=== PATIENT | female | born 1970 | race Hispanic/Latino ===

== ENCOUNTER 2016-12-29 11:21 | Emergency (ER) | payer MEDICARE, MEDICAID ==
[2016-12-29 11:22] VITALS: BMI 26.6
[2016-12-29 11:51] VITALS: TEMP 98.6; O2SAT 98
--- NOTE | 2016-12-29 12:09 | ED PDOC ---
Arrival/HPI - General Chief Complaint: Trauma Time Seen by Provider: 12/29/16 11:55 Historian: Patient - History of Present Illness Narrative History of Present Illness (Text): 12/29/16 12:06 46 year old female with a past medical history that includes hypertension presents to the emergency department after mechanical fall prior to arrival. Patient reports she slipped on ice and hit her head. Currently patient reports mild headache. No loss of consciousness. Denies abdominal pain, dizziness, nausea, vomiting, or other symptoms. Time/Duration: Prior to Arrival Symptom Onset: Sudden Symptom Course: Unchanged Modifying Factors (Text): None Associated Symptoms (Text): None Past Medical History - Provider Review Nursing Documentation Reviewed: Yes - Past History Past History: Non-Contributing - Infectious Disease Hx of Infectious Diseases: None - Tetanus Immunization Tetanus Immunization: Unknown - Cardiac Hx Hypertension: Yes - Pulmonary Hx Respiratory Disorders: No - Neurological Hx Neurological Disorder: No - HEENT Hx HEENT Disorder: No - Endocrine/Metabolic Hx Hypothyroidism: Yes - Hematological/Oncological Hx Blood Disorders: No - Integumentary Hx Dermatological Disorder: No - Musculoskeletal/Rheumatological Hx Musculoskeletal Disorders: No - Gastrointestinal Hx Gastrointestinal Disorders: No - Genitourinary/Gynecological Hx Genitourinary Disorders: No - Psychiatric Hx Bipolar Disorder: Yes Hx Depression: Yes Hx Schizophrenia: Yes Hx Substance Use: No - Past Surgical History Past Surgical History: Non-Contributing - Surgical History Hx Cholecystectomy: Yes - Anesthesia Hx Anesthesia: Yes Hx Anesthesia Reactions: No Hx Malignant Hyperthermia: No - Suicidal Assessment Feels Threatened In Home Enviroment: No Family/Social History - Physician Review Nursing Documentation Reviewed: Yes Family/Social History: Unknown Family HX Smoking Status: Never Smoked Hx Alcohol Use: No Hx Substance Use: No Hx Substance Use Treatment: No Allergies/Home Meds Allergies/Adverse Reactions: Allergies divalproex sodium [From Depakote] Allergy (Verified 11/02/16 11:39) RASH haloperidol [From Haldol] Allergy (Verified 11/02/16 11:39) RASH haloperidol lactate [From Haldol] Allergy (Verified 11/02/16 11:39) RASH olanzapine [From Zyprexa] Allergy (Verified 11/02/16 11:39) RASH risperidone [From Risperdal] Allergy (Verified 11/02/16 11:39) RASH Review of Systems - Physician Review All systems were reviewed & negative as marked: Yes - Review of Systems Cardiovascular: absent: Chest Pain Gastrointestinal: absent: Abdominal Pain, Nausea, Vomiting Neurological: Headache (mild). absent: Dizziness Physical Exam Vital Signs Reviewed: Yes Vital Signs Temp Pulse Resp BP Pulse Ox 12/29/16 12:34 72 18 168/102 H 98 12/29/16 11:48 98.6 F 76 16 181/132 H 98 Temperature: Afebrile Blood Pressure: Hypertensive Pulse: Regular Respiratory Rate: Normal Appearance: Positive for: Well-Appearing, Non-Toxic, Comfortable Pain Distress: None Mental Status: Positive for: Alert and Oriented X 3 - Systems Exam Head: Present: Atraumatic, Normocephalic Pupils: Present: PERRL Extroacular Muscles: Present: EOMI Conjunctiva: Present: Normal Mouth: Present: Moist Mucous Membranes Neck: Present: Normal Range of Motion Respiratory/Chest: Present: Clear to Auscultation, Good Air Exchange. No: Respiratory Distress, Accessory Muscle Use Cardiovascular: Present: Regular Rate and Rhythm, Normal S1, S2. No: Murmurs Abdomen: Present: Normal Bowel Sounds. No: Tenderness, Distention, Peritoneal Signs Upper Extremity: Present: Normal Inspection, Normal ROM. No: Cyanosis, Edema, Swelling Lower Extremity: Present: Normal Inspection, Normal ROM. No: Edema Neurological: Present: GCS=15, CN II-XII Intact, Speech Normal Skin: Present: Warm, Dry, Normal Color. No: Rashes Psychiatric: Present: Alert, Oriented x 3, Normal Insight, Normal Concentration Medical Decision Making ED Course and Treatment: Impression: 46 year old female with a past medical history that includes hypertension presents s/p mechanical fall prior to arrival. No LOC. Differential Diagnosis include but are not limited to: Plan: -- CT Head w/o contrast -- Tylenol -- Reassess and disposition Prior Visits: Notes and results from previous visits were reviewed. Patient last seen in ED on 11/22/16 for left toe bleeding and discharged home. Progress Notes: - RAD Interpretation Radiology Orders: 12/29/16 12:04 HEAD W/O CONTRAST [CT] Stat - Medication Orders Current Medication Orders: Discontinued Medications Acetaminophen (Tylenol 325mg Tab) 650 mg PO STAT STA Stop: 12/29/16 12:05 Last Admin: 12/29/16 12:44 Dose: 650 MG MAR Pain/Vitals Document 12/29/16 12:44 AMANDA (Rec: 12/29/16 12:44 AMANDA [id number]) Pain Reassessment Is This A Pain ReAssessment? Yes Presence of Pain Presence of Pain Yes Pain Scale Used Pain Scale Used Numeric Location Intensity 4 Scale Used Numeric - Scribe Statement The provider has reviewed the documentation as recorded by the Jaylyn Mathews Provider Scribe Attestation: All medical record entries made by the Jaylyn were at my direction and personally dictated by me. I have reviewed the chart and agree that the record accurately reflects my personal performance of the history, physical exam, medical decision making, and the department course for this patient. I have also personally directed, reviewed, and agree with the discharge instructions and disposition. Disposition/Present on Arrival - Present on Arrival Any Indicators Present on Arrival: No History of DVT/PE: No History of Uncontrolled Diabetes: No Urinary Catheter: No History of Decub. Ulcer: No History Surgical Site Infection Following: None - Disposition Have Diagnosis and Disposition been Completed?: Yes Diagnosis: Head injury Disposition: HOME/ ROUTINE Disposition Time: 15:39 Condition: STABLE Discharge Instructions (ExitCare): Head Injury (ED) Additional Instructions: return to er with worsening symptoms or concerns. Referrals: Teddy Solomon [Primary Care Provider] - Follow up with primary
[2016-12-29 12:34] VITALS: BP 168/102; PULSE 72; RESP 18
--- NOTE | 2016-12-29 13:21 | CT ---
PROCEDURE: CT HEAD WITHOUT CONTRAST. HISTORY: trauma COMPARISON: Comparison is made to the previous study dated 09/23/2016 TECHNIQUE: Axial computed tomography images were obtained through the head/brain without intravenous contrast. Radiation dose: Total exam DLP = 789.08 mGy-cm. FINDINGS: HEMORRHAGE: No intracranial hemorrhage. BRAIN: No mass effect or edema. No atrophy or chronic microvascular ischemic changes. VENTRICLES: Unremarkable. No hydrocephalus. CALVARIUM: Unremarkable. PARANASAL SINUSES: Unremarkable as visualized. No significant inflammatory changes. MASTOID AIR CELLS: Unremarkable as visualized. No inflammatory changes. OTHER FINDINGS: None. IMPRESSION: No evidence of acute intracranial hemorrhage intracranial collection mass effect or midline shift.
== END 2016-12-29 13:32 | disposition home or self-care (01) ==
LOC: ED 11:21
DX: S09.90XA Unspecified injury of head, initial encounter (principal); W00.0XXA Fall on same level due to ice and snow, initial encounter; I10 Essential (primary) hypertension

== ENCOUNTER 2017-02-13 22:04 | Emergency (ER) | payer MEDICARE, MEDICAID ==
[2017-02-13 22:04] VITALS: BMI 26.6
[2017-02-14 00:12] VITALS: BP 148/88; PULSE 84; RESP 18; TEMP 98.1; O2SAT 99
== END 2017-02-14 00:15 | disposition left against medical advice (07) ==
LOC: ED 22:04
DX: Z02.89 Encounter for other administrative examinations (principal); Z00.00 Encounter for general adult medical examination without abnormal findings

== ENCOUNTER 2017-05-19 21:24 | Emergency (ER) | payer MEDICARE, MEDICAID ==
[2017-05-19 21:24] VITALS: BMI 26.6
[2017-05-19] MEDS ORDERED: Sodium Chloride 0.9% 1,000 ML IV STA (22:58)
--- NOTE | 2017-05-19 23:01 | ED PDOC ---
Arrival/HPI <Chris Hunt - Last Filed: 05/19/17 23:50> - History of Present Illness Time/Duration: < week Symptom Onset: Gradual Symptom Course: Unchanged Activities at Onset: Other <Humaira Guevara - Last Filed: 05/20/17 01:16> - General Chief Complaint: GI Problem Time Seen by Provider: 05/19/17 21:42 - History of Present Illness Narrative History of Present Illness (Text): 05/19/17 22:58 46 year old female with past medical history of HTN and depression presents for diarrhea ongoing for a few days. Patient states that she had about 4 BMs today watery in nature. Patient denies having any abd pain, N/V, CP, SOB. Patient is tolerating diet. (Humaira Guevara) Past Medical History - Provider Review Nursing Documentation Reviewed: Yes - Past History Past History: Non-Contributing - Infectious Disease Hx of Infectious Diseases: None - Tetanus Immunization Tetanus Immunization: Unknown - Cardiac Hx Hypertension: Yes - Pulmonary Hx Respiratory Disorders: No - Neurological Hx Neurological Disorder: No - HEENT Hx HEENT Disorder: No - Renal Hx Renal Disorder: No - Endocrine/Metabolic Hx Hypothyroidism: Yes - Hematological/Oncological Hx Blood Disorders: No - Integumentary Hx Dermatological Disorder: No - Musculoskeletal/Rheumatological Hx Musculoskeletal Disorders: No - Gastrointestinal Hx Gastrointestinal Disorders: No - Genitourinary/Gynecological Hx Genitourinary Disorders: No - Psychiatric Hx Bipolar Disorder: Yes Hx Depression: Yes Hx Schizophrenia: Yes Hx Substance Use: No - Past Surgical History Past Surgical History: Non-Contributing - Surgical History Hx Cholecystectomy: Yes - Anesthesia Hx Anesthesia: Yes Hx Anesthesia Reactions: No Hx Malignant Hyperthermia: No - Suicidal Assessment Feels Threatened In Home Enviroment: No <Humaira Guevara - Last Filed: 05/20/17 01:16> Family/Social History - Physician Review Nursing Documentation Reviewed: Yes Family/Social History: Unknown Family HX Smoking Status: Never Smoked Hx Alcohol Use: No Hx Substance Use: No Hx Substance Use Treatment: No <Humaira Guevara - Last Filed: 05/20/17 01:16> Allergies/Home Meds <Chris Hunt - Last Filed: 05/19/17 23:50> <Humaira Guevara - Last Filed: 05/20/17 01:16> Allergies/Adverse Reactions: Allergies divalproex sodium [From Depakote] Allergy (Verified 05/19/17 22:49) RASH haloperidol [From Haldol] Allergy (Verified 05/19/17 22:49) RASH haloperidol lactate [From Haldol] Allergy (Verified 05/19/17 22:49) RASH olanzapine [From Zyprexa] Allergy (Verified 05/19/17 22:49) RASH risperidone [From Risperdal] Allergy (Verified 05/19/17 22:49) RASH Review of Systems - Review of Systems Constitutional: Normal ENT: absent: Voice Changes, Sore Throat, Rhinorrhea Respiratory: Normal. absent: SOB, Cough, Wheezing Cardiovascular: Normal. absent: Chest Pain, Edema, Calf Pain Gastrointestinal: Diarrhea. absent: Normal, Abdominal Pain, Nausea, Vomiting Genitourinary Female: Normal. absent: Dysuria, Frequency Skin: Normal. absent: Rash, Pruritis, Laceration Neurological: Normal. absent: Headache, Dizziness Endocrine: Normal. absent: Diaphoresis Psychiatric: Normal. absent: Anxiety, Depression <Humaira Guevara - Last Filed: 05/20/17 01:16> Physical Exam Temperature: Afebrile Blood Pressure: Normal Pulse: Regular Respiratory Rate: Normal Appearance: Positive for: Well-Appearing, Non-Toxic Pain Distress: None Mental Status: Positive for: Alert and Oriented X 3 - Systems Exam Head: Present: Atraumatic, Normocephalic Mouth: Present: Moist Mucous Membranes Respiratory/Chest: Present: Clear to Auscultation. No: Good Air Exchange, Respiratory Distress, Accessory Muscle Use, Wheezes, Rales, Rhonchi Cardiovascular: Present: Regular Rate and Rhythm, Normal S1, S2. No: Murmurs Abdomen: Present: Normal Bowel Sounds. No: Tenderness, Distention, Peritoneal Signs, Guarding Lower Extremity: Present: Normal Inspection. No: Edema, CALF TENDERNESS Neurological: Present: GCS=15 Skin: Present: Warm, Dry, Normal Color. No: Rashes Psychiatric: Present: Alert, Oriented x 3, Normal Insight, Normal Concentration <Humaira Guevara - Last Filed: 05/20/17 01:16> Medical Decision Making <Chris Hunt - Last Filed: 05/19/17 23:50> Re-evaluation Time: 23:03 <Humaira Guevara - Last Filed: 05/20/17 01:16> ED Course and Treatment: Impression: Pt seen and evaluated with medical numerical control operator. Pt, whose past medical history includes hypertension and depression, presented for watery diarrhea for past few days, with 4 episodes today. Aware and agree with HPI, clinical findings, plan, and management. Plan: -- Labs -- IV fluids -- Reassess and disposition (Chris Hunt) 05/19/17 23:03 46 year old female with diarrhea Will check CBC, CMP Patient will receive NS 1L bolus and be reevaluated 05/20/17 01:11 Patient's diarrhea has improved. (Humaira Guevara) - Lab Interpretations Lab Results: 05/19/17 23:15 05/19/17 23:15 Lab Results 05/19/17 23:15: Sodium 138, Potassium 3.4 L, Chloride 102, Carbon Dioxide 28, Anion Gap 11, BUN 17, Creatinine 0.8, Est GFR ( Amer) > 60, Est GFR (Non- Af Amer) > 60, Random Glucose 76, Calcium 8.8, Total Bilirubin 0.3, AST 20, ALT 24, Alkaline Phosphatase 76, Total Protein 6.8, Albumin 3.8, Globulin 3.1, Albumin/Globulin Ratio 1.2 05/19/17 23:15: WBC 6.5 D, RBC 4.11, Hgb 12.0, Hct 35.8 L, MCV 87.1, MCH 29.2, MCHC 33.5, RDW 15.0 H, Plt Count 216, MPV 10.6 - Medication Orders Current Medication Orders: Discontinued Medications Sodium Chloride (Sodium Chloride 0.9%) 1,000 mls @ 999 mls/hr IV .Q1H1M STA Stop: 05/19/17 23:58 Last Admin: 05/19/17 23:26 Dose: 999 mls/hr Potassium Chloride (K-Dur 20 Meq Er Tab) 40 meq PO STAT STA Stop: 05/20/17 00:56 - PA / SKEIN [employer] HELPER / Resident Statement JOHNY has reviewed & agrees with the documentation as recorded. JOHNY has examined the patient and agrees with the treatment plan. <Chris Hunt - Last Filed: 05/19/17 23:50> Disposition/Present on Arrival <Chris Hunt - Last Filed: 05/19/17 23:50> - Present on Arrival Any Indicators Present on Arrival: No History of DVT/PE: No History of Uncontrolled Diabetes: No Urinary Catheter: No History Surgical Site Infection Following: None - Disposition Have Diagnosis and Disposition been Completed?: Yes Disposition Time: 01:11 Patient Plan: Discharge <Humaira Guevara - Last Filed: 05/20/17 01:16> - Disposition Diagnosis: Diarrhea Disposition: HOME/ ROUTINE Patient Problems: Current Active Problems Problem Status Onset Diarrhea Acute Condition: GOOD Additional Instructions: Miroslava Hernandez, thank you for letting us take care of you today. Your provider was Dr. Humaira Guevara. You were treated for diarrhea. The emergency medical care you received today was directed at your acute symptoms. If you were prescribed any medication, please fill it and take as directed. It may take several days for your symptoms to resolve. Return to the Emergency Department if your symptoms worsen, do not improve, or if you have any other problems. Please contact your doctor or call one of the physicians/clinics you have been referred to that are listed on the Patient Visit Information form that is included in your discharge packet. Bring any paperwork you were given at discharge with you along with any medications you are taking to your follow up visit. Our treatment cannot replace ongoing medical care by a primary care provider (PCP) outside of the emergency department. Thank you for allowing the [facility] team to be part of your care today. If you had an X-Ray or CT scan: A Radiologist will review the ED reading if any change in treatment is needed we will contact you. If you had a blood, urine, or wound culture: It will take several days for the results, if any change in treatment is needed we will contact you. If you had an STI test: It will take 48 hours for the results. Please call after 1 week if you have not heard back.
[2017-05-19 23:55] LABS: ALB/GLOB RATIO 1.2 (1.1-1.8); ALBUMIN 3.8 g/dL (3.0-4.8); ALT/SGPT 24 U/L (7-56); AST/SGOT 20 U/L (15-39); BLOOD UREA NITROGEN 17 mg/dL (7-21); CALCIUM 8.8 mg/dL (8.4-10.5); GFR AFRICAN-AMERICAN > 60; GFR NON-AFRICAN AMERICAN > 60
[2017-05-20 00:17] LABS: MEAN CELL VOLUME 87.1 fL (80.0-105.0); MEAN CORPUSCULAR HEMOGLOBIN 29.2 pg (25.0-35.0); MEAN CORPUSCULAR HGB CONC 33.5 g/dl (31.0-37.0); RBC 4.11 10^6/uL (3.5-6.1); WHITE BLOOD COUNT 6.5 10^3/ul (4.5-11.0)
[2017-05-20 00:18] LABS: MEAN PLATELET VOLUME 10.6 fl (7.0-11.0)
[2017-05-20] MEDS ORDERED: Potassium Chloride 20 mEq ER Tab PO STA ×2 (00:55→01:02)
[2017-05-20 01:26] VITALS: TEMP 98.7; O2SAT 98
[2017-05-20 01:27] VITALS: BP 142/78; PULSE 85; RESP 14
== END 2017-05-20 01:36 | disposition home or self-care (01) ==
LOC: ED 21:24
DX: R19.7 Diarrhea, unspecified (principal); I10 Essential (primary) hypertension
CPT/HCPCS: 80053; 85027; 96360; 99284; J7040

== ENCOUNTER 2017-06-02 21:09 | Emergency (ER) | payer MEDICARE, MEDICAID ==
[2017-06-02 21:10] VITALS: BMI 26.6
== END 2017-06-02 21:34 | disposition left against medical advice (07) ==
LOC: ED 21:09
DX: Z02.89 Encounter for other administrative examinations (principal); R51 Headache

== ENCOUNTER 2017-06-05 22:47 | Emergency (ER) | payer MEDICARE, MEDICAID ==
[2017-06-05 23:10] VITALS: BP 140/91; PULSE 73; RESP 18; O2SAT 99
[2017-06-05 23:11] VITALS: TEMP 98
[2017-06-05 23:13] VITALS: BMI 29.3
[2017-06-05] MEDS ORDERED: Sodium Chloride 0.9% 1,000 ML IV STA (23:33)
--- NOTE | 2017-06-05 23:40 | ED PDOC ---
Arrival/HPI - General Historian: Patient - History of Present Illness Time/Duration: < week (2 days) Symptom Onset: Gradual Symptom Course: Unchanged Activities at Onset: Rest, Light <Nicole Espinoza - Last Filed: 06/06/17 01:34> <Yamil Arteaga - Last Filed: 06/06/17 02:20> - General Chief Complaint: Abdominal Pain Time Seen by Provider: 06/05/17 23:09 - History of Present Illness Narrative History of Present Illness (Text): 06/05/17 23:38 46 year old female who presents to the Emergency department complaining of abdominal pain for the past 2 days. Patient states pain is sharp, non-radiating , and locates around her belly-button. Patient denies any fever, chills, chest pain, shortness of breath, diarrhea, urinary symptoms, back pain, neck pain, headache, dizziness, or any other complaints. Patient reports associated nausea with multiple episodes of vomiting. Patient states she took [place] without improvement. Patient states she came to the ER a few days prior, but left without being seen. (Nicole Espinoza) Past Medical History - Provider Review Nursing Documentation Reviewed: Yes - Past History Past History: Non-Contributing - Infectious Disease Hx of Infectious Diseases: None - Tetanus Immunization Tetanus Immunization: Unknown - Cardiac Hx Hypertension: Yes - Pulmonary Hx Respiratory Disorders: No - Neurological Hx Neurological Disorder: No - HEENT Hx HEENT Disorder: No - Renal Hx Renal Disorder: No - Endocrine/Metabolic Hx Hypothyroidism: Yes - Hematological/Oncological Hx Blood Disorders: No - Integumentary Hx Dermatological Disorder: No - Musculoskeletal/Rheumatological Hx Musculoskeletal Disorders: No - Gastrointestinal Hx Gastrointestinal Disorders: No - Genitourinary/Gynecological Hx Genitourinary Disorders: No - Psychiatric Hx Bipolar Disorder: Yes Hx Depression: Yes Hx Schizophrenia: Yes Hx Substance Use: No - Past Surgical History Past Surgical History: Non-Contributing - Surgical History Hx Cholecystectomy: Yes - Anesthesia Hx Anesthesia: Yes Hx Anesthesia Reactions: No Hx Malignant Hyperthermia: No - Suicidal Assessment Feels Threatened In Home Enviroment: No <Nicole Espinoza - Last Filed: 06/06/17 01:34> Family/Social History - Physician Review Nursing Documentation Reviewed: Yes Family/Social History: Unknown Family HX Smoking Status: Never Smoked Hx Alcohol Use: No Hx Substance Use: No Hx Substance Use Treatment: No <Nicole Espinoza Roz - Last Filed: 06/06/17 01:34> Allergies/Home Meds <Nicole Esipnoza Roz - Last Filed: 06/06/17 01:34> <AftabYamil - Last Filed: 06/06/17 02:20> Allergies/Adverse Reactions: Allergies divalproex sodium [From Depakote] Allergy (Verified 06/05/17 23:14) RASH haloperidol [From Haldol] Allergy (Verified 06/05/17 23:14) RASH haloperidol lactate [From Haldol] Allergy (Verified 06/05/17 23:14) RASH olanzapine [From Zyprexa] Allergy (Verified 06/05/17 23:14) RASH risperidone [From Risperdal] Allergy (Verified 06/05/17 23:14) RASH Review of Systems - Physician Review All systems were reviewed & negative as marked: Yes - Review of Systems Constitutional: Normal. absent: Fevers Eyes: Normal ENT: Normal Respiratory: Normal. absent: SOB, Cough Cardiovascular: Normal. absent: Chest Pain Gastrointestinal: Abdominal Pain, Nausea, Vomiting. absent: Diarrhea Genitourinary Female: Normal. absent: Dysuria, Frequency, Hematuria, Urine Output Changes Musculoskeletal: Normal. absent: Back Pain, Neck Pain Skin: Normal. absent: Rash Neurological: Normal. absent: Headache, Dizziness Endocrine: Normal Hemo/Lymphatic: Normal Psychiatric: Normal <Nicole Espinoza Roz - Last Filed: 06/06/17 01:34> Physical Exam Vital Signs Reviewed: Yes Temperature: Afebrile Blood Pressure: Normal Pulse: Regular Respiratory Rate: Normal Appearance: Positive for: Well-Appearing, Non-Toxic, Comfortable Pain Distress: None Mental Status: Positive for: Alert and Oriented X 3 - Systems Exam Head: Present: Atraumatic, Normocephalic Pupils: Present: PERRL Extroacular Muscles: Present: EOMI Conjunctiva: Present: Normal Mouth: Present: Moist Mucous Membranes Neck: Present: Normal Range of Motion. No: Meningeal Signs, MIDLINE TENDERNESS , Paraspinal Tenderness Respiratory/Chest: Present: Clear to Auscultation, Good Air Exchange. No: Respiratory Distress, Accessory Muscle Use Cardiovascular: Present: Regular Rate and Rhythm, Normal S1, S2. No: Murmurs Abdomen: Present: Tenderness (Periumbilical), Normal Bowel Sounds. No: Distention, Peritoneal Signs Back: Present: Normal Inspection. No: CVA Tenderness, Midline Tenderness, Paraspinal Tenderness (No flank tenderness) Upper Extremity: Present: Normal Inspection. No: Cyanosis, Edema Lower Extremity: Present: Normal Inspection. No: Edema Neurological: Present: GCS=15, Speech Normal Skin: Present: Warm, Dry, Normal Color. No: Rashes Psychiatric: Present: Alert, Oriented x 3, Normal Insight, Normal Concentration <Nicole Espinoza - Last Filed: 06/06/17 01:34> Medical Decision Making <Nicole Espinoza - Last Filed: 06/06/17 01:34> - RAD Interpretation Assistant Professor Of Criminal Justice: Radiologist <Yamil Arteaga - Last Filed: 06/06/17 02:20> ED Course and Treatment: 06/05/17 23:38 Patient is nontoxic well appearing with stable vital signs presenting with 2 day history of worsening abdominal pain with multiple episodes of vomiting. CBC: wbc; 2.4 CMP: K; 3.0 Lipase wnl Urinalysis: pending CAT scan PENDING 06/06/17 01:23 case signed out to dr. arteaga pending CT results and Disposition. (Nicole Espinoza) 06/06/17 01:25 Case endorsed to me by POLLY Espinoza, pending CT results and disposition. 06/06/17 02:09 Reviewed radiology, CT Abdomen and Pelvis shows: Lower thorax: Bibasilar atelectasis. ABDOMEN: Liver: No acute findings. Gallbladder and bile ducts: The gallbladder is surgically absent. No significant intra- or extrahepatic biliary ductal dilation. Pancreas: Enhances homogeneously. No ductal dilation. No discrete mass. Spleen: No acute findings. Adrenals: No acute findings. Kidneys and ureters: No acute findings. No hydronephrosis or renal calculi. No discrete solid mass. PELVIS: Bladder: Moderately distended, but otherwise unremarkable. Reproductive: No acute findings. Appendix: The air filled appendix is of normal caliber (series 2, image 93; series 601, image 79). ABDOMEN and PELVIS: Stomach and bowel: No obstruction. Mural thickening within multiple loops of fluid-filled proximal small bowel, without surrounding inflammation or fluid to confirm an acute enteritis. Peritoneum: As above. Lymph nodes: No pathologically enlarged lymph nodes. Vasculature: Calcified atherosclerotic disease. Bones: No acute fracture. IMPRESSION: Mural thickening within multiple loops of proximal small bowel without surrounding inflammation or fluid to confirm a focal enteritis. 06/06/17 02:[address] Carnes, who is aware and agrees with plan. Accepts pt in to his service. Pt will go to [facility] observation for abdominal pain, intractable vomiting, and leukopenia. Requests Dr. Shi on consult. ( Yamil Arteaga) - Lab Interpretations Lab Results: 06/05/17 23:33 06/05/17 23:33 Lab Results 06/05/17 23:33: WBC 2.4 L* D, RBC 4.29, Hgb 12.5, Hct 37.2, MCV 86.7, MCH 29.1, MCHC 33.6, RDW 14.6 H, Plt Count 141, MPV 9.8, Gran % 51.9, Lymph % (Auto) 35.6 H, Falls % (Auto) 11.7 H, Eos % (Auto) 0.4 L, Baso % (Auto) 0.4, Gran # 1.24 L, Lymph # 0.9 L, Falls # 0.3, Eos # 0.0, Baso # 0.01 06/05/17 23:33: Sodium 138, Potassium 3.0 L, Chloride 95, Carbon Dioxide 32, Anion Gap 14, BUN 13, Creatinine 0.8, Est GFR ( Amer) > 60, Est GFR (Non- Af Amer) > 60, Random Glucose 91, Calcium 8.6, Total Bilirubin 0.4, AST 31, ALT 39, Alkaline Phosphatase 74, Total Protein 6.7, Albumin 3.8, Globulin 2.9, Albumin/Globulin Ratio 1.3, Lipase 59 06/05/17 23:33: Urine Color Yellow, Urine Appearance Clear, Urine pH 6.0, Ur Specific [place] 1.020, Urine Protein Negative, Urine Glucose (UA) Negative, Urine Ketones Negative, Urine Blood Negative, Urine Nitrate Negative, Urine Bilirubin Negative, Urine Urobilinogen 0.2, Ur Leukocyte Esterase Negative - RAD Interpretation Radiology Orders: 06/05/17 23:33 ABD & PELVIS IV CONTRAST ONLY [CT] Stat - Medication Orders Current Medication Orders: Ceftriaxone Sodium (Rocephin 1 Gram Ivpb) 1 gm in 100 mls @ 200 mls/hr IV ONCE STA PRN Reason: Protocol Stop: 06/06/17 02:39 Metronidazole (Flagyl) 500 mg in 100 mls @ 100 mls/hr IVPB STAT STA PRN Reason: Protocol Stop: 06/06/17 03:10 Sodium Chloride (Sodium Chloride 0.9%) 1,000 mls @ 100 mls/hr IV .Q10H STA Stop: 06/06/17 12:17 Ondansetron HCl (Zofran Inj) 4 mg IVP Q6H PRN PRN Reason: Nausea/Vomiting Stop: 06/06/17 11:00 Discontinued Medications Sodium Chloride (Sodium Chloride 0.9%) 1,000 mls @ 999 mls/hr IV .Q1H1M STA Stop: 06/06/17 00:33 Last Admin: 06/05/17 23:57 Dose: 999 mls/hr Iohexol (Omnipaque 300 100 Ml) Confirm Administered Dose 100 ml IJ .STK-MED ONE Stop: 06/06/17 00:36 Ondansetron HCl (Zofran Inj) 4 mg IVP STAT STA Stop: 06/05/17 23:34 Last Admin: 06/05/17 23:57 Dose: 4 mg Potassium Chloride (K-Dur 20 Meq Er Tab) 40 meq PO STAT STA Stop: 06/06/17 01:27 Last Admin: 06/06/17 01:45 Dose: 40 meq - Scribe Statement The provider has reviewed the documentation as recorded by the Scribe <Nicole Espinoza - Last Filed: 06/06/17 01:34> - PA / NATIONAL EXPANSION RECRUITER / Resident Statement / has reviewed & agrees with the documentation as recorded. / has examined the patient and agrees with the treatment plan. <Yamil Arteaga - Last Filed: 06/06/17 02:20> - Scribe Statement Sona Sellers Provider Scribe Attestation: All medical record entries made by the Scribe were at my direction and personally dictated by me. I have reviewed the chart and agree that the record accurately reflects my personal performance of the history, physical exam, medical decision making, and the department course for this patient. I have also personally directed, reviewed, and agree with the discharge instructions and disposition. (Nicole Espinoza) Disposition/Present on Arrival - Present on Arrival Any Indicators Present on Arrival: No History of DVT/PE: No History of Uncontrolled Diabetes: No Urinary Catheter: No History of Decub. Ulcer: No History Surgical Site Infection Following: None <Nicole Espinoza - Last Filed: 06/06/17 01:34> - Present on Arrival Any Indicators Present on Arrival: No History of DVT/PE: No History of Uncontrolled Diabetes: No Urinary Catheter: No History of Decub. Ulcer: No History Surgical Site Infection Following: None - Disposition Have Diagnosis and Disposition been Completed?: Yes Disposition Time: 02:16 <Yamil Arteaga - Last Filed: 06/06/17 02:20> - Disposition Diagnosis: Abdominal pain, Intractable vomiting Disposition: HOSPITALIZED Patient Problems: Current Active Problems Problem Status Onset Abdominal pain Acute Intractable vomiting Acute Condition: STABLE Forms: [employer] (Wallisian)
[2017-06-06 00:08] LABS: BASO # 0.01 K/mm3 (0.0-2.0); BASO % 0.4 % (0.0-3.0); EOS % 0.4 % (1.5-5.0); GRAN # 1.24 (1.4-6.5); GRAN % 51.9 % (50.0-68.0); HEMATOCRIT 37.2 % (36.0-48.0); LYMPH # 0.9 (1.2-3.4); LYMPH % 35.6 % (22.0-35.0); MEAN CELL VOLUME 86.7 fl (80.0-105.0); MEAN CORPUSCULAR HEMOGLOBIN 29.1 pg (25.0-35.0); MEAN CORPUSCULAR HGB CONC 33.6 g/dl (31.0-37.0); MEAN PLATELET VOLUME 9.8 fl (7.0-11.0); MONO # 0.3 (0.1-0.6); MONO % 11.7 % (1.0-6.0); RED CELL DISTRIBUTION WIDTH 14.6 % (11.5-14.5)
[2017-06-06 00:14] LABS: ALB/GLOB RATIO 1.3 (1.1-1.8); ALKALINE PHOSPHATASE 74 U/L (38-133); ALT/SGPT 39 U/L (7-56); AST/SGOT 31 U/L (15-39); BILIRUBIN,TOTAL 0.4 mg/dL (0.2-1.3); BLOOD UREA NITROGEN 13 mg/dL (7-21); CALCIUM 8.6 mg/dL (8.4-10.5); CARBON DIOXIDE 32 mmol/L (21-33); CHLORIDE 95 mmol/L (95-110); GFR AFRICAN-AMERICAN > 60; GLUCOSE,RANDOM 91 mg/dL (70-110); LIPASE 59 U/L (23-300); SODIUM 138 mmol/L (132-148); TOTAL PROTEIN 6.7 g/dL (5.8-8.3)
[2017-06-06 00:17] LABS: WHITE BLOOD COUNT 2.4 10^3/ul (4.5-11.0)
[2017-06-06] MEDS ORDERED: Iohexol 300 100 ML IJ ONE (00:35)
[2017-06-06] MEDS ORDERED: Potassium Chloride 20 mEq ER Tab PO STA (01:26)
--- NOTE | 2017-06-06 01:34 | CT ---
EXAM: CT Abdomen and Pelvis With Intravenous Contrast CLINICAL HISTORY: 46 years old, female; Pain; Abdominal pain; Acute; Prior surgery; Surgery date: 6+ months; Surgery type: Cholycystectomy 8 years ago; Additional info: Abd pain TECHNIQUE: Axial computed tomography images of the abdomen and pelvis with intravenous contrast. All CT scans at this facility use one or more dose reduction techniques, viz.: automated exposure control; ma/kV adjustment per patient size (including targeted exams where dose is matched to indication; i.e. head); or iterative reconstruction technique. Coronal and sagittal reformatted images were created and reviewed. CONTRAST: 100 mL of OMNI 350 administered intravenously. COMPARISON: CT - ABD PELVIS IV CONTRAST ONLY 12/27/2015 12:37:32 PM FINDINGS: Lower thorax: Bibasilar atelectasis. ABDOMEN: Liver: No acute findings. Gallbladder and bile ducts: The gallbladder is surgically absent. No significant intra- or extrahepatic biliary ductal dilation. Pancreas: Enhances homogeneously. No ductal dilation. No discrete mass. Spleen: No acute findings. Adrenals: No acute findings. Kidneys and ureters: No acute findings. No hydronephrosis or renal calculi. No discrete solid mass. PELVIS: Bladder: Moderately distended, but otherwise unremarkable. Reproductive: No acute findings. Appendix: The air filled appendix is of normal caliber (series 2, image 93; series 601, image 79). ABDOMEN and PELVIS: Stomach and bowel: No obstruction. Mural thickening within multiple loops of fluid-filled proximal small bowel, without surrounding inflammation or fluid to confirm an acute enteritis. Peritoneum: As above. Lymph nodes: No pathologically enlarged lymph nodes. Vasculature: Calcified atherosclerotic disease. Bones: No acute fracture. IMPRESSION: Mural thickening within multiple loops of proximal small bowel without surrounding inflammation or fluid to confirm a focal enteritis.
[2017-06-06 01:53] LABS: URINE BILIRUBIN NEGATIVE (NEGATIVE); URINE BLOOD NEGATIVE (NEGATIVE); URINE GLUCOSE (UA) NEGATIVE (NEGATIVE); URINE KETONE NEGATIVE (NEGATIVE); URINE LEUKOCYTE ESTERASE NEGATIVE Leu/uL (NEGATIVE); URINE PROTEIN NEGATIVE mg/dL (<30 mg/dL); URINE UROBILINOGEN 0.2 E.U./dL (<1 E.U./dL)
[2017-06-06 01:57] LABS: URINE APPEARANCE CLEAR (CLEAR); URINE COLOR YELLOW (YELLOW)
[2017-06-06] MEDS ORDERED: cefTRIAXone 1 gm 1 GM/100 ML BAG IV STA (02:10)
[2017-06-06] MEDS ORDERED: metroNIDAZOLE IV 500 mg/100 ml 500 MG/100 ML BAG IVPB STA (02:11)
[2017-06-06] MEDS ORDERED: Sodium Chloride 0.9% 1,000 ML IV STA (02:18)
--- NOTE | 2017-06-06 16:57 | CP.PCM.PCO ---
Physician Communication Note - Physician Communication Note Physician Communication Note: attempted to locate patient, unable to be found by staff on 3rd floor or ER
--- NOTE | 2017-06-06 20:04 | CP.PCM.PN ---
Subjective - Date & Time of Evaluation Date of Evaluation: 06/06/17 Time of Evaluation: 03:45 - Subjective Subjective: Patient in the ER requested to leave against medical advice, was being admitted for evaluation and treatment of abdominal pain, with preliminary diagnosis of enterocolitis. Patient informed about the risk, she signed AMA sheet please see the details. Communicated with the ER staff/patient's nurse to inform PMD about pt's leaving AMA. Objective - Vital Signs/Intake and Output Vital Signs (last 24 hours): Temp Pulse Resp BP Pulse Ox 98.0 F 73 18 140/91 H 99 06/05/17 23:09 06/05/17 23:09 06/05/17 23:09 06/05/17 23:09 06/05/17 23:09
== END 2017-06-06 03:52 | disposition left against medical advice (07) ==
LOC: ED 22:47 → UNDOADMOB 06-06 02:17 → ERH 06-06 02:17
DX: R10.9 Unspecified abdominal pain (principal); R11.10 Vomiting, unspecified; I10 Essential (primary) hypertension
CPT/HCPCS: 74177; 80053; 81003; 83690; 85025; 87040; 96374; 99284; J0696; J2405; J7040; Q9967

== ENCOUNTER 2017-07-29 21:53 | Emergency (ER) | payer MEDICARE, MEDICAID ==
[2017-07-29 22:29] VITALS: BMI 29.0
== END 2017-07-29 22:35 | disposition left against medical advice (07) ==
LOC: ED 21:53
DX: Z02.89 Encounter for other administrative examinations (principal); Z00.00 Encounter for general adult medical examination without abnormal findings

== ENCOUNTER 2017-07-30 20:54 | Emergency (ER) | payer MEDICARE, MEDICAID ==
[2017-07-30 20:55] VITALS: BMI 29.0
--- NOTE | 2017-07-30 21:19 | ED PDOC ---
Arrival/HPI - General Time Seen by Provider: 07/30/17 20:55 Historian: Patient - History of Present Illness Narrative History of Present Illness (Text): 07/30/17 21:20 46yr old female presents today for medication refill. pt denies any complaints. states she ran out of her medication and doesnt like her doctor. denies cp or sob. no vomiting/diarrhea. no abdominal pain. no other complaints. Past Medical History - Provider Review Nursing Documentation Reviewed: Yes - Travel History Have you recently traveled outside [place] w/in the past 3 mons?: No - Past History Past History: Non-Contributing - Infectious Disease Hx of Infectious Diseases: None - Tetanus Immunization Tetanus Immunization: Unknown - Cardiac Hx Hypertension: Yes - Pulmonary Hx Respiratory Disorders: No - Neurological Hx Neurological Disorder: No - HEENT Hx HEENT Disorder: No - Renal Hx Renal Disorder: No - Endocrine/Metabolic Hx Hypothyroidism: Yes - Hematological/Oncological Hx Blood Disorders: No - Integumentary Hx Dermatological Disorder: No - Musculoskeletal/Rheumatological Hx Musculoskeletal Disorders: No - Gastrointestinal Hx Gastrointestinal Disorders: No - Genitourinary/Gynecological Hx Genitourinary Disorders: No - Psychiatric Hx Bipolar Disorder: Yes Hx Depression: Yes Hx Schizophrenia: Yes Hx Substance Use: No - Past Surgical History Past Surgical History: Non-Contributing - Surgical History Hx Cholecystectomy: Yes - Anesthesia Hx Anesthesia: Yes Hx Anesthesia Reactions: No Hx Malignant Hyperthermia: No - Suicidal Assessment Feels Threatened In Home Enviroment: No Family/Social History - Physician Review Nursing Documentation Reviewed: Yes Family/Social History: Unknown Family HX Smoking Status: Never Smoked Hx Alcohol Use: No Hx Substance Use: No Hx Substance Use Treatment: No Allergies/Home Meds Allergies/Adverse Reactions: Allergies divalproex sodium [From Depakote] Allergy (Verified 07/29/17 22:30) RASH haloperidol [From Haldol] Allergy (Verified 07/29/17 22:30) RASH haloperidol lactate [From Haldol] Allergy (Verified 07/29/17 22:30) RASH olanzapine [From Zyprexa] Allergy (Verified 07/29/17 22:30) RASH risperidone [From Risperdal] Allergy (Verified 07/29/17 22:30) RASH Review of Systems - Review of Systems Constitutional: absent: Fatigue, Fevers Respiratory: absent: SOB, Cough Cardiovascular: absent: Chest Pain, Palpitations Gastrointestinal: absent: Abdominal Pain, Nausea, Vomiting Musculoskeletal: absent: Arthralgias Skin: absent: Rash, Pruritis Neurological: absent: Headache, Dizziness Psychiatric: absent: Anxiety, Depression Physical Exam Vital Signs Reviewed: Yes Temperature: Afebrile Blood Pressure: Hypertensive Pulse: Regular Respiratory Rate: Normal Appearance: Positive for: Well-Appearing, Non-Toxic, Comfortable Pain Distress: None Mental Status: Positive for: Alert and Oriented X 3 - Systems Exam Head: Present: Atraumatic Mouth: Present: Moist Mucous Membranes Neck: Present: Normal Range of Motion Respiratory/Chest: Present: Clear to Auscultation, Good Air Exchange. No: Respiratory Distress, Accessory Muscle Use Cardiovascular: Present: Regular Rate and Rhythm, Normal S1, S2. No: Murmurs Abdomen: No: Tenderness Neurological: Present: GCS=15, Speech Normal Skin: Present: Warm, Dry, Normal Color. No: Rashes Psychiatric: Present: Alert, Oriented x 3 Medical Decision Making ED Course and Treatment: 07/30/17 21:31 46yr old female with hx of HTN requesting medication refill. denies any complaints. slightly Hypertensive. rx for hctz and potassium given. pt was advised to f/u with PMD [facility]. advised immediate return if symptoms worsen ,persist or if new symptoms develop. Patient verbalizes understanding of discharge instructions and need for immediate followup. all aspects of this case were discussed the attending of record. impression; medication refill Follow up with the primary care physician within the next 2 days. take medications as prescribed. Return if symptoms worsen,persist or if new symptoms develop. Disposition/Present on Arrival - Present on Arrival Any Indicators Present on Arrival: No History of DVT/PE: No History of Uncontrolled Diabetes: No Urinary Catheter: No History Surgical Site Infection Following: None - Disposition Have Diagnosis and Disposition been Completed?: Yes Diagnosis: Prescription refill Disposition: HOME/ ROUTINE Disposition Time: 21:13 Condition: GOOD Additional Instructions: Follow up with the primary care physician within the next 2 days. take medications as prescribed. Return if symptoms worsen,persist or if new symptoms develop. Prescriptions: Hydrochlorothiazide [Microzide] 25 mg PO DAILY #10 cap Potassium Chloride 10 meq PO DAILY #10 capsule.er Referrals: [facility] [Outside] - Follow up with primary Beatrice Kevin MD [Staff Provider] - Follow up with primary
[2017-07-30 21:20] VITALS: BP 167/81; PULSE 82; RESP 19; TEMP 98.3; O2SAT 98
== END 2017-07-30 21:35 | disposition home or self-care (01) ==
LOC: ED 20:54
DX: Z76.0 Encounter for issue of repeat prescription (principal)

== ENCOUNTER 2017-08-15 19:03 | Emergency (ER) | payer MEDICARE, MEDICAID ==
[2017-08-15 19:03] VITALS: BMI 29.0
--- NOTE | 2017-08-15 19:58 | ED PDOC ---
Arrival/HPI - General Chief Complaint: ENT Problem Time Seen by Provider: 08/15/17 19:21 Historian: Patient - History of Present Illness Narrative History of Present Illness (Text): 08/15/17 19:53 A 47 year old female, whose past medical history includes bipolar disorder and hypertension, presents to the emergency department complaining of a spontaneous nose bleed prior to arrival. She reports cold like symptoms for the past few days.On evaluation, no active bleeding. Patient denies any fever, chills, nausea , vomiting, abdominal pain, chest pain, shortness of breath, headache, visual changes or any other complaint Time/Duration: Prior to Arrival Symptom Course: Resolved Quality: Other Context: Home Past Medical History - Provider Review Nursing Documentation Reviewed: Yes - Past History Past History: Non-Contributing - Infectious Disease Hx of Infectious Diseases: None - Tetanus Immunization Tetanus Immunization: Unknown - Cardiac Hx Hypertension: Yes - Pulmonary Hx Respiratory Disorders: No - Neurological Hx Neurological Disorder: No - HEENT Hx HEENT Disorder: No - Renal Hx Renal Disorder: No - Endocrine/Metabolic Hx Hypothyroidism: Yes - Hematological/Oncological Hx Blood Disorders: No - Integumentary Hx Dermatological Disorder: No - Musculoskeletal/Rheumatological Hx Musculoskeletal Disorders: No - Gastrointestinal Hx Gastrointestinal Disorders: No - Genitourinary/Gynecological Hx Genitourinary Disorders: No - Psychiatric Hx Bipolar Disorder: Yes Hx Depression: Yes Hx Schizophrenia: Yes Hx Substance Use: No - Past Surgical History Past Surgical History: Non-Contributing - Surgical History Hx Cholecystectomy: Yes - Anesthesia Hx Anesthesia: Yes Hx Anesthesia Reactions: No Hx Malignant Hyperthermia: No - Suicidal Assessment Feels Threatened In Home Enviroment: No Family/Social History - Physician Review Nursing Documentation Reviewed: Yes Family/Social History: No Known Family HX Smoking Status: Never Smoked Hx Alcohol Use: No Hx Substance Use: No Hx Substance Use Treatment: No Allergies/Home Meds Allergies/Adverse Reactions: Allergies divalproex sodium [From Depakote] Allergy (Verified 08/15/17 19:14) RASH haloperidol [From Haldol] Allergy (Verified 08/15/17 19:14) RASH haloperidol lactate [From Haldol] Allergy (Verified 08/15/17 19:14) RASH olanzapine [From Zyprexa] Allergy (Verified 08/15/17 19:14) RASH risperidone [From Risperdal] Allergy (Verified 08/15/17 19:14) RASH Review of Systems - Physician Review All systems were reviewed & negative as marked: Yes - Review of Systems Constitutional: absent: Fevers, Night Sweats Eyes: absent: Vision Changes ENT: Epistaxis (resolved) Respiratory: absent: SOB Cardiovascular: absent: Chest Pain Gastrointestinal: absent: Abdominal Pain, Nausea, Vomiting Neurological: absent: Headache Physical Exam Vital Signs Pulse Resp BP Pulse Ox 08/15/17 20:28 68 18 148/87 99 Appearance: Positive for: Well-Appearing, Non-Toxic, Comfortable Pain Distress: None Mental Status: Positive for: Alert and Oriented X 3 - Systems Exam Head: Present: Atraumatic, Normocephalic Pupils: Present: PERRL Extroacular Muscles: Present: EOMI Conjunctiva: Present: Normal Mouth: Present: Moist Mucous Membranes Pharnyx: Present: Normal. No: ERYTHEMA, EXUDATE, TONSILS ENLARGED Nose (External): Present: Atraumatic Nose (Internal): Present: Normal Inspection, No Active Bleeding, Other (Dried blood in right anterior nasal, no swelling or tenderness) Neck: Present: Normal Range of Motion. No: Meningeal Signs Respiratory/Chest: Present: Clear to Auscultation, Good Air Exchange. No: Respiratory Distress, Accessory Muscle Use Cardiovascular: Present: Regular Rate and Rhythm, Normal S1, S2. No: Murmurs Abdomen: Present: Normal Bowel Sounds. No: Tenderness, Distention, Peritoneal Signs Back: Present: Normal Inspection Upper Extremity: Present: Normal Inspection, NORMAL PULSES. No: Cyanosis, Edema Lower Extremity: Present: Normal Inspection, NORMAL PULSES. No: Edema, CALF TENDERNESS Neurological: Present: GCS=15, CN II-XII Intact, Speech Normal, Motor Func Grossly Intact, Normal Sensory Function, Normal Cerebellar Funct Skin: Present: Warm, Dry, Normal Color. No: Rashes Psychiatric: Present: Alert, Oriented x 3, Normal Insight, Normal Concentration Medical Decision Making ED Course and Treatment: 08/15/17 19:53 Impression: A 47 year old female with spontaneous nose bleed, which has resolved. No active bleeding. Plan: -- Clonidine -- Reassess and disposition Progress Notes: - Medication Orders Current Medication Orders: Discontinued Medications Clonidine HCl (Catapres) 0.2 mg PO STAT STA Stop: 08/15/17 19:31 - Scribe Statement The provider has reviewed the documentation as recorded by the Scribe Magali Malone Provider Scribe Attestation: All medical record entries made by the Scribe were at my direction and personally dictated by me. I have reviewed the chart and agree that the record accurately reflects my personal performance of the history, physical exam, medical decision making, and the department course for this patient. I have also personally directed, reviewed, and agree with the discharge instructions and disposition. Disposition/Present on Arrival - Present on Arrival Any Indicators Present on Arrival: No History of DVT/PE: No History of Uncontrolled Diabetes: No Urinary Catheter: No History of Decub. Ulcer: No History Surgical Site Infection Following: None - Disposition Have Diagnosis and Disposition been Completed?: Yes Diagnosis: Epistaxis Disposition: HOME/ ROUTINE Disposition Time: 20:51 Patient Plan: Discharge Condition: STABLE Discharge Instructions (ExitCare): Nosebleed (ED) Additional Instructions: Avoid any digital manipulation of your nose/Take meds as prescribed/follow up with your doctor this week Prescriptions: Loratadine [Claritin] 10 mg PO DAILY PRN #14 tab PRN Reason: Allergy Symptoms Referrals: America Solomon MD [Primary Care Provider] - Follow up with primary Forms: [employer] (Togolese)
[2017-08-15 21:07] VITALS: BP 145/82; PULSE 70; RESP 16; O2SAT 97
== END 2017-08-15 21:07 | disposition home or self-care (01) ==
LOC: ED 19:03
DX: R04.0 Epistaxis (principal); I10 Essential (primary) hypertension

== ENCOUNTER 2017-10-03 19:43 | Emergency (ER) | payer MEDICARE, MEDICAID ==
[2017-10-03 19:43] VITALS: BMI 28.1
[2017-10-03 19:57] VITALS: TEMP 98.7
--- NOTE | 2017-10-03 20:05 | ED PDOC ---
Arrival/HPI - General Chief Complaint: Abnormal Skin Integrity Time Seen by Provider: 10/03/17 20:02 Historian: Patient - History of Present Illness Narrative History of Present Illness (Text): 10/03/17 20:04 47 y/o female, psychiatric including schizophrenia, pmh including htn, multiple drug allergy to psychiatric meds, c/o itching rash on the lt. hand and rt. shoulder region x 2 days after changing a new soap, no fever or chills, no headache or night sweat, no dizziness, no change in vision, no other medical or psychological complaints. Past Medical History - Provider Review Nursing Documentation Reviewed: Yes - Past History Past History: Non-Contributing - Infectious Disease Hx of Infectious Diseases: None - Tetanus Immunization Tetanus Immunization: Unknown - Cardiac Hx Hypertension: Yes - Pulmonary Hx Respiratory Disorders: No - Neurological Hx Neurological Disorder: No - HEENT Hx HEENT Disorder: No - Renal Hx Renal Disorder: No - Endocrine/Metabolic Hx Hypothyroidism: Yes - Hematological/Oncological Hx Blood Disorders: No - Integumentary Hx Dermatological Disorder: No - Musculoskeletal/Rheumatological Hx Musculoskeletal Disorders: No - Gastrointestinal Hx Gastrointestinal Disorders: No - Genitourinary/Gynecological Hx Genitourinary Disorders: No - Psychiatric Hx Bipolar Disorder: Yes Hx Depression: Yes Hx Schizophrenia: Yes Hx Substance Use: No - Past Surgical History Past Surgical History: Non-Contributing - Surgical History Hx Cholecystectomy: Yes - Anesthesia Hx Anesthesia: Yes - Suicidal Assessment Feels Threatened In Home Enviroment: No Family/Social History - Physician Review Nursing Documentation Reviewed: Yes Family/Social History: Unknown Family HX Smoking Status: Never Smoked Hx Alcohol Use: No Hx Substance Use: No Hx Substance Use Treatment: No Allergies/Home Meds Allergies/Adverse Reactions: Allergies divalproex sodium [From Depakote] Allergy (Verified 10/03/17 19:50) RASH haloperidol [From Haldol] Allergy (Verified 10/03/17 19:50) RASH haloperidol lactate [From Haldol] Allergy (Verified 10/03/17 19:50) RASH olanzapine [From Zyprexa] Allergy (Verified 10/03/17 19:50) RASH risperidone [From Risperdal] Allergy (Verified 10/03/17 19:50) RASH Review of Systems - Review of Systems Constitutional: absent: Fatigue, Fevers Eyes: absent: Vision Changes ENT: absent: Hearing Changes Respiratory: absent: SOB, Cough Cardiovascular: absent: Chest Pain Genitourinary Female: absent: Dysuria Skin: Rash, Pruritis Neurological: absent: Headache, Dizziness Physical Exam Vital Signs Reviewed: Yes Vital Signs Temp Pulse Resp BP Pulse Ox 10/03/17 19:51 98.7 F 83 17 150/90 97 Temperature: Afebrile Blood Pressure: Normal Pulse: Regular Respiratory Rate: Normal Appearance: Positive for: Well-Appearing, Non-Toxic, Comfortable Pain Distress: None Mental Status: Positive for: Alert and Oriented X 3 - Systems Exam Head: Present: Atraumatic, Normocephalic Pupils: Present: PERRL Extroacular Muscles: Present: EOMI Conjunctiva: Present: Normal Mouth: Present: Moist Mucous Membranes Neck: Present: Normal Range of Motion Respiratory/Chest: Present: Clear to Auscultation, Good Air Exchange. No: Respiratory Distress, Accessory Muscle Use Cardiovascular: Present: Regular Rate and Rhythm, Normal S1, S2. No: Murmurs Abdomen: Present: Normal Bowel Sounds. No: Tenderness, Distention, Peritoneal Signs Back: Present: Normal Inspection Upper Extremity: Present: Normal Inspection. No: Cyanosis, Edema Lower Extremity: Present: Normal Inspection. No: Edema Neurological: Present: GCS=15, Speech Normal, Motor Func Grossly Intact, Gait Normal, Memory Normal Skin: Present: Warm, Dry, Rashes (Lt. hand visible lichenification rash rt. shoulder no visible rash, no cellulitis or streaking, no ulcers, no bullseye or target signs. ), Normal Color Psychiatric: Present: Alert, Oriented x 3, Normal Insight, Normal Concentration Medical Decision Making ED Course and Treatment: 10/03/17 20:44 -Discharge home with benadryl, lotrisone, keep the skin cool and dry, avoid contact with possible allergen, follow up with your own pmd and plastic cutter within 2 days, return to the ER for any new or worsening signs or symptoms. - PA / LINING SETTER / Resident Statement MD/DO has reviewed & agrees with the documentation as recorded. Disposition/Present on Arrival - Present on Arrival Any Indicators Present on Arrival: No History of DVT/PE: No History of Uncontrolled Diabetes: No Urinary Catheter: No History of Decub. Ulcer: No History Surgical Site Infection Following: None - Disposition Have Diagnosis and Disposition been Completed?: Yes Diagnosis: Contact dermatitis Disposition: HOME/ ROUTINE Disposition Time: 20:45 Patient Plan: Discharge Condition: GOOD Additional Instructions: -Discharge home with benadryl, lotrisone, keep the skin cool and dry, avoid contact with possible allergen, follow up with your own pmd and plastic cutter within 2 days, return to the ER for any new or worsening signs or symptoms. Prescriptions: Clotrimazole/Betamethasone [Lotrisone] 1 appful EXT BID #30 g DiphenhydrAMINE [Benadryl] 50 mg PO QID PRN #30 cap PRN Reason: Other Referrals: Jordan Castillo MD [Staff Provider] - Follow up with primary [facility] [place] - Follow up with primary
[2017-10-03 22:39] VITALS: BP 148/73; PULSE 74; RESP 18; O2SAT 98
== END 2017-10-03 21:25 | disposition home or self-care (01) ==
LOC: ED 19:43
DX: L25.9 Unspecified contact dermatitis, unspecified cause (principal)

== ENCOUNTER 2017-10-03 23:06 | Emergency (ER) | payer MEDICARE, MEDICAID ==
[2017-10-03 23:07] VITALS: BMI 28.1
== END 2017-10-03 23:19 | disposition left against medical advice (07) ==
LOC: ED 23:06
DX: Z02.89 Encounter for other administrative examinations (principal); R51 Headache

== ENCOUNTER 2017-12-05 13:05 | Emergency (ER) | payer MEDICARE, MEDICAID ==
--- NOTE | 2017-12-05 13:14 | ED PDOC ---
Arrival/HPI - General Time Seen by Provider: 12/05/17 13:11 Historian: Patient - History of Present Illness Narrative History of Present Illness (Text): 12/05/17 13:12 47yo female bib BLS for psychiatric evaluation. Per the EMS, Social security worker, called and states patient stated "i will kill myself", while on the phone with her this morning. Patient denies talking with any social security worker or having any intention of killing her self. She denies homicidal ideation or somatic complaint. Past Medical History - Provider Review Nursing Documentation Reviewed: Yes - Past History Past History: Non-Contributing - Infectious Disease Hx of Infectious Diseases: None - Tetanus Immunization Tetanus Immunization: Unknown - Cardiac Hx Hypertension: Yes - Pulmonary Hx Respiratory Disorders: No - Neurological Hx Neurological Disorder: No - HEENT Hx HEENT Disorder: No - Renal Hx Renal Disorder: No - Endocrine/Metabolic Hx Hypothyroidism: Yes - Hematological/Oncological Hx Blood Disorders: No - Integumentary Hx Dermatological Disorder: No - Musculoskeletal/Rheumatological Hx Musculoskeletal Disorders: No - Gastrointestinal Hx Gastrointestinal Disorders: No - Genitourinary/Gynecological Hx Genitourinary Disorders: No - Psychiatric Hx Bipolar Disorder: Yes Hx Depression: Yes Hx Schizophrenia: Yes Hx Substance Use: No - Past Surgical History Past Surgical History: Non-Contributing - Surgical History Hx Cholecystectomy: Yes - Anesthesia Hx Anesthesia: Yes - Suicidal Assessment Feels Threatened In Home Enviroment: No Family/Social History - Physician Review Nursing Documentation Reviewed: Yes Family/Social History: Unknown Family HX Smoking Status: Never Smoked Hx Alcohol Use: No Hx Substance Use: No Hx Substance Use Treatment: No Allergies/Home Meds Allergies/Adverse Reactions: Allergies divalproex sodium [From Depakote] Allergy (Verified 12/05/17 13:16) RASH haloperidol [From Haldol] Allergy (Verified 12/05/17 13:16) RASH haloperidol lactate [From Haldol] Allergy (Verified 12/05/17 13:16) RASH olanzapine [From Zyprexa] Allergy (Verified 12/05/17 13:16) RASH risperidone [From Risperdal] Allergy (Verified 12/05/17 13:16) RASH Review of Systems - Physician Review All systems were reviewed & negative as marked: Yes - Review of Systems Constitutional: Normal Eyes: Normal ENT: Normal Respiratory: Normal Cardiovascular: Normal Gastrointestinal: Normal Genitourinary Female: Normal Musculoskeletal: Normal Skin: Normal Neurological: Normal Endocrine: Normal Hemo/Lymphatic: Normal Psychiatric: Suicidal Ideation Physical Exam Vital Signs Reviewed: Yes Vital Signs Temp Pulse Resp BP Pulse Ox 12/05/17 14:52 98.2 F 86 18 168/90 H 98 12/05/17 13:36 98.2 F 89 17 174/99 H 99 Temperature: Afebrile Blood Pressure: Normal Pulse: Regular Respiratory Rate: Normal Appearance: Positive for: Well-Appearing, Non-Toxic, Comfortable Pain Distress: None Mental Status: Positive for: Alert and Oriented X 3 - Systems Exam Head: Present: Atraumatic, Normocephalic Pupils: Present: PERRL Extroacular Muscles: Present: EOMI Conjunctiva: Present: Normal Mouth: Present: Moist Mucous Membranes Neck: Present: Normal Range of Motion Respiratory/Chest: Present: Clear to Auscultation, Good Air Exchange. No: Respiratory Distress, Accessory Muscle Use Cardiovascular: Present: Regular Rate and Rhythm, Normal S1, S2. No: Murmurs Abdomen: Present: Normal Bowel Sounds. No: Tenderness, Distention, Peritoneal Signs Back: Present: Normal Inspection Upper Extremity: Present: Normal Inspection. No: Cyanosis, Edema Lower Extremity: Present: Normal Inspection. No: Edema Neurological: Present: GCS=15, CN II-XII Intact, Speech Normal Skin: Present: Warm, Dry, Normal Color. No: Rashes Psychiatric: Present: Alert, Oriented x 3, Normal Insight, Normal Concentration Medical Decision Making ED Course and Treatment: 12/05/17 15:50 Pt was medically cleared for psych evaluation. She was seen in ED by PES yeimy Locke. she DC with Dr. Jara and DC pt to f/u [facility] - Lab Interpretations Lab Results: 12/05/17 13:46 12/05/17 13:46 Lab Results 12/05/17 14:02: Urine HCG, Qual Negative 12/05/17 14:02: Urine Opiates Screen Negative, Urine Methadone Screen Negative, Ur Barbiturates Screen Negative, Ur Phencyclidine Scrn Negative, Ur Amphetamines Screen Negative, U Benzodiazepines Scrn Negative, U Oth Cocaine Metabols Negative, U Cannabinoids Screen Negative 12/05/17 14:02: Urine Color Yellow, Urine Appearance Turbid, Urine pH 6.0, Ur Specific [place] 1.010, Urine Protein Negative, Urine Glucose (UA) Negative, Urine Ketones Negative, Urine Blood Large H, Urine Nitrate Negative, Urine Bilirubin Negative, Urine Urobilinogen 0.2, Ur Leukocyte Esterase Negative, Urine RBC 5 - 10, Urine WBC Negative, Ur Epithelial Cells 3 - 4 12/05/17 13:46: Alcohol, Quantitative < 10 12/05/17 13:46: Salicylates < 1 L, Acetaminophen < 10.0 L 12/05/17 13:46: Sodium 140, Potassium 3.3 L, Chloride 101, Carbon Dioxide 29, Anion Gap 13, BUN 14, Creatinine 0.8, Est GFR ( Amer) > 60, Est GFR (Non- Af Amer) > 60, Random Glucose 108, Calcium 8.9, Total Bilirubin 0.3, AST 19, ALT 21, Alkaline Phosphatase 62, Total Protein 6.6, Albumin 3.8, Globulin 2.8, Albumin/Globulin Ratio 1.3 12/05/17 13:46: WBC 4.6 D, RBC 3.97, Hgb 11.5 L, Hct 35.0 L, MCV 88.2, MCH 29.0 , MCHC 32.9, RDW 14.2, Plt Count 195, MPV 9.8, Gran % 66.5, Lymph % (Auto) 24.6 , [place] % (Auto) 7.2 H, Eos % (Auto) 1.5, Baso % (Auto) 0.2, Gran # 3.03, Lymph # (Auto) 1.1 L, [place] # (Auto) 0.3, Eos # (Auto) 0.1, Baso # (Auto) 0.01 - RAD Interpretation Radiology Orders: 12/05/17 13:45 CHEST PORTABLE [RAD] Stat - Medication Orders Current Medication Orders: Discontinued Medications Potassium Chloride (K-Dur 20 Meq Er Tab) 40 meq PO STAT STA Stop: 12/05/17 14:20 Disposition/Present on Arrival - Present on Arrival Any Indicators Present on Arrival: No History of DVT/PE: No History of Uncontrolled Diabetes: No Urinary Catheter: No History Surgical Site Infection Following: None - Disposition Have Diagnosis and Disposition been Completed?: Yes Diagnosis: History of - schizophrenia Disposition: HOME/ ROUTINE Disposition Time: 15:00 Patient Plan: Discharge Patient Problems: Current Active Problems Problem Status Onset History of - schizophrenia Acute Condition: STABLE Discharge Instructions (ExitCare): Schizophrenia (DC) Additional Instructions: Follow up with [facility] Return to ED for any new or worsening symptoms Referrals: America Solomon MD [Primary Care Provider] - Follow up with primary
[2017-12-05 13:15] VITALS: BMI 34.4
[2017-12-05 13:39] VITALS: TEMP 98.2
[2017-12-05 13:58] LABS: BASO # 0.01 K/mm3 (0.0-2.0); BASO % 0.2 % (0.0-3.0); EOS # 0.1 (0.0-0.7); EOS % 1.5 % (1.5-5.0); GRAN # 3.03 (1.4-6.5); GRAN % 66.5 % (50.0-68.0); HEMOGLOBIN 11.5 g/dL (12.0-16.0); LYMPH # 1.1 (1.2-3.4); LYMPH % 24.6 % (22.0-35.0); MEAN CELL VOLUME 88.2 fl (80.0-105.0); MEAN CORPUSCULAR HGB CONC 32.9 g/dl (31.0-37.0); MEAN PLATELET VOLUME 9.8 fl (7.0-11.0); MONO # 0.3 (0.1-0.6); MONO % 7.2 % (1.0-6.0); RBC 3.97 10^6/uL (3.5-6.1); RED CELL DISTRIBUTION WIDTH 14.2 % (11.5-14.5); WHITE BLOOD COUNT 4.6 10^3/ul (4.5-11.0)
[2017-12-05 14:11] LABS: ALB/GLOB RATIO 1.3 (1.1-1.8); ALBUMIN 3.8 g/dL (3.0-4.8); ALT/SGPT 21 U/L (7-56); AST/SGOT 19 U/L (14-36); BLOOD UREA NITROGEN 14 mg/dL (7-21); CALCIUM 8.9 mg/dL (8.4-10.5); GFR AFRICAN-AMERICAN > 60; GFR NON-AFRICAN AMERICAN > 60
[2017-12-05 14:12] LABS: ACETAMINOPHEN < 10.0 ug/ml (10.0-20.0); SALICYLATE < 1 mg/dL (2.0-20.0)
[2017-12-05] MEDS ORDERED: Potassium Chloride 20 mEq ER Tab PO STA (14:19)
[2017-12-05 14:21] LABS: URINE BILIRUBIN NEGATIVE (NEGATIVE); URINE BLOOD LARGE (NEGATIVE); URINE GLUCOSE (UA) NEGATIVE (NEGATIVE); URINE LEUKOCYTE ESTERASE NEGATIVE Leu/uL (NEGATIVE); URINE NITRATE NEGATIVE (NEGATIVE); URINE PROTEIN NEGATIVE mg/dL (<30 mg/dL); URINE UROBILINOGEN 0.2 E.U./dL (<1 E.U./dL)
[2017-12-05 14:24] LABS: URINE APPEARANCE TURBID (CLEAR); URINE COLOR YELLOW (YELLOW)
[2017-12-05 14:27] LABS: URINE WBC NEGATIVE /hpf (0-6)
[2017-12-05 14:32] LABS: BARBITURATES, UR NEGATIVE (NEGATIVE); BENZODIAZEPINES, UR NEGATIVE (NEGATIVE); OPIATES, UR NEGATIVE (NEGATIVE); PHENCYCLIDINE, UR NEGATIVE (NEGATIVE)
[2017-12-05 14:53] VITALS: BP 168/90; PULSE 86; RESP 18; O2SAT 98
== END 2017-12-05 15:15 | disposition home or self-care (01) ==
LOC: ED 13:05
DX: F20.9 Schizophrenia, unspecified (principal); I10 Essential (primary) hypertension; E03.9 Hypothyroidism, unspecified
CPT/HCPCS: 80053; 81001; 84703; 85025; 90791; 99283; G0480

== ENCOUNTER 2018-06-19 13:09 | Emergency (ER) | payer MEDICARE, MEDICAID ==
[2018-06-19 13:52] VITALS: BMI 36.4
[2018-06-19 13:55] VITALS: TEMP 98.1; O2SAT 99
[2018-06-19 14:35] VITALS: BP 132/85; PULSE 79; RESP 18
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
== END 2018-06-19 15:00 | disposition left against medical advice (07) ==
LOC: ED 13:09
DX: Z59.0 Homelessness (principal); T73.0XXA Starvation, initial encounter; X58.XXXA Exposure to other specified factors, initial encounter; F20.9 Schizophrenia, unspecified; I10 Essential (primary) hypertension; E03.9 Hypothyroidism, unspecified